=== PATIENT | male | born 1975 | race Caucasian/White ===

== ENCOUNTER 2018-10-09 11:27 | Emergency (ER) | payer OTHER ==
[~2018-10-09] VITALS: Ht 180.3 cm; Wt 140.6 kg
[2018-10-09 11:54] LABS: ABSOLUTE NEUTROPHILS 5.2 thou/uL (1.4-8.2); BASOPHILS 1.2 % (0.0-2.0); EOSINOPHILS 2.4 % (0.0-3.0); HEMATOCRIT 47.5 % (42.0-52.0); HEMOGLOBIN 16.6 gm/dL (14.0-18.0); LYMPHOCYTES 29.8 % (24.0-44.0); MCH 33.3 pg (26.0-34.0); MCHC 34.8 g/dL (28.0-37.0); MCV 95.7 fL (80.0-100.0); MONOCYTES 9.2 % (1.0-8.0); PLATELET COUNT 223 thou/uL (150-400); POLYS 57.4 % (36.0-66.0); RBC 4.96 mil/uL (4.50-6.00); RDW 12.9 % (10.5-14.5)
[2018-10-09 12:06] LABS: ANION GAP 10 mmol/L (7-16); BUN 11 mg/dL (7-18); CALCIUM 9.4 mg/dL (8.5-10.1); CHLORIDE 100 mmol/L (98-107); CO2 27 mmol/L (21-32); CREATININE 0.9 mg/dL (0.7-1.3); GLUCOSE 179 mg/dL (74-106); POTASSIUM 3.9 mmol/L (3.5-5.1); SODIUM 137 mmol/L (136-145)
[2018-10-09 12:15] LABS: ALBUMIN 3.6 g/dL (3.4-5.0); LIPASE 180 U/L (73-393); SGOT 58 U/L (15-37); SGPT 134 U/L (30-65); TOTAL BILIRUBIN 0.6 mg/dL (<0.1-1.0); TOTAL PROTEIN 7.4 g/dL (6.4-8.2); TROPONIN-I <0.06 ng/mL (<0.06)
[2018-10-09] MEDS ORDERED: GLUCOPHAGE XR750 MG PO (12:23)
[2018-10-09] MEDS ORDERED: AMARYL4 MG PO (12:23)
[2018-10-09] MEDS ORDERED: XANAX1 MG PO (12:23)
[2018-10-09 14:37] VITALS: BP 152/90
--- NOTE | 2018-10-09 17:19 | EKG ---
[address] [address] ELECTROCARDIOGRAM REPORT Name: RONNY RIVER Room #: [facility] [id number] ������������������ Admission: 10/09/18 ������������������ Attend Phys: Discharge: 10/09/18 ������������������ Date of : 77 Report #: [id number] ����������������������������������������������������������������� [id number] THIS REPORT FOR: //name// [facility]ly [facility] ED Test Date: 2018-10-09 Test Time: 11:31:10 Pat Name: RONNY RIVER Department: Room: Gender: M Patient Admitting Representative: TAMARA : 1975 Requested By: Marley Cutler Order Number: [id number] MD: Neri Medley Measurements Intervals [place] Rate: 98 P: -5 FL: 142 QRS: 68 QRSD: 97 T: 42 QT: 337 QTc: 431 Interpretive Statements Sinus rhythm Normal tracing No previous ECG available for comparison Electronically Signed On 10-09-2018 17:19:03 CDT by Neri Medley [email or web address] ��������������������������������������������� <ELECTRONICALLY SIGNED> ���������������������������������������� By: Neri Medley MD, [facility] ��������������������������������������������� 10/09/18 1719 1131 1131 Neri Medley MD, FACC /EPI
== END 2018-10-09 14:38 | disposition home or self-care (01) ==
LOC: ER 11:27
PROVIDERS: Nurse Practitioner Family
DX: R07.89 Other chest pain (principal); R74.8 Abnormal levels of other serum enzymes; E11.9 Type 2 diabetes mellitus without complications; F17.200 Nicotine dependence, unspecified, uncomplicated; Z88.0 Allergy status to penicillin; Z88.8 Allergy status to other drugs, medicaments and biological substances